=== PATIENT | female | born 1975 | race Caucasian/White ===

== ENCOUNTER 2016-07-08 21:24 | Emergency (ER) | payer OTHER ==
[~2016-07-08] VITALS: Ht 172.7 cm; Wt 74.2 kg
[~2016-07-08 21:24] MED LIST: ACYCLOVIR15 GM TP; ALBUTEROL SULF8.5 GM IH; AUGMENTIN875 MG PO; CITALOPRAM HBR20 M1 PO; CLARITIN10 MG PO; KLONOPIN0.5 M1 PO; NOHOMEMEDS; NORCO 5/3251 TABLET PO; PREDNISONE20 MG PO; TESSALON PERLE100 MG PO; VOLTAREN50 MG PO; XANAX0.25 MG PO
[2016-07-08 21:31] VITALS: BP 146/105
[2016-07-08 22:05] LABS: ADD MIUA? YES; BILIRUBIN NEGATIVE; BLOOD MODERATE; COLOR YELLOW ((YELLOW)); GLUCOSE (STRIP) NEGATIVE; KETONES NEGATIVE; LEUKOCYTES NEGATIVE; NITRITE NEGATIVE; PROTEIN (STRIP) NEGATIVE; SPECIFIC GRAVITY 1.015 (1.000-1.030); UROBILINOGEN 0.2 MG/DL (0.2-1.0)
[2016-07-08 22:07] LABS: URINE COMMENT MIUA ON UNSPUN URINE
[2016-07-08 22:08] LABS: BACTERIA NONE SEEN /HPF; EPITHELIAL CELLS NONE SEEN /HPF; MUCUS RARE /LPF; RED BLOOD CELLS 0-5 /HPF (0-5); UCUL ADDED? NO; WHITE BLOOD CELLS 0-5 /HPF (0-5)
[2016-07-08] MEDS ORDERED: SKELAXIN800 MG PO (22:50)
[2016-07-08] MEDS ORDERED: NORCO 5/3251 TABLET PO (22:50)
[2016-07-08] MEDS ORDERED: MEDROL DOSEPAK4 MG PO (22:50)
[2016-07-08 23:20] LABS: HEMATOCRIT 40.8 % (36.0-46.0); MCH 29.4 PG (29.0-34.0); MCHC 33.6 G/DL (30.0-36.0); MCV 87.6 FL (83-99); MEAN PLAT.VOLUME 10.2 uM^3 (9.5-12.4); PLATELET COUNT 226 K/uL (156-360); RBC DIS.WIDTH-CV 12.6 % (11.8-14.6); RBC DIS.WIDTH-SD 40.4 % (39-53); RED BLOOD COUNT 4.66 M/uL (3.80-5.20)
[2016-07-08 23:27] LABS: CHLORIDE 107 mEq/L (99-109); POTASSIUM 3.8 mEq/L (3.7-5.4); SODIUM 141 mEq/L (136-147)
[2016-07-08 23:29] LABS: GLUCOSE 89 mg/dL (70-99)
[2016-07-08 23:31] LABS: ANION GAP 9 MEQ/L (2-14); TOTAL BILIRUBIN 0.3 mg/dL (0.0-1.0)
[2016-07-08 23:33] LABS: ALKALINE PHOSPHATASE 47 IU/L (3-129); GFR ESTIMATE (CALCULATED) > 59 mL/min/
[2016-07-08 23:34] LABS: UREA NITROGEN (BUN) 9 mg/dL (9-23)
[2016-07-08 23:36] LABS: LIPASE 9 U/L (1.0-51.0)
[2016-07-08 23:43] LABS: QUANTITATIVE HCG < 4.0 MIU/ML
== END 2016-07-09 00:15 | disposition home or self-care (01) ==
LOC: EME 21:24
PROVIDERS: Physician Assistant
DX: M54.5 Low back pain (principal); I77.6 Arteritis, unspecified; K55.8 Other vascular disorders of intestine; R39.89 Other symptoms and signs involving the genitourinary system; F17.200 Nicotine dependence, unspecified, uncomplicated
CPT/HCPCS: 74176; 80053; 81003; 83605; 83690; 84702; 84703; 85027; 99281; 99284; J8540